=== PATIENT | female | born 1990 | race African-American/Black ===

== ENCOUNTER 2017-09-08 19:40 | Emergency (ER) | payer MEDICAID ==
[~2017-09-08] VITALS: Ht 167.6 cm; Wt 71.7 kg
[2017-09-08 21:46] LABS: CLARITY URINE CLOUDY (CLEAR); COLOR URINE YELLOW (YELLOW); KETONES URINE TRACE (NEGATIVE); LEUKOCYTE ESTERASE URINE NEGATIVE (NEGATIVE); NITRITE URINE NEGATIVE (NEGATIVE); OCCULT BLOOD URINE 3+ (NEGATIVE); PROTEIN URINE TRACE (NEGATIVE); SPECIFIC GRAVITY URINE 1.033 (1.005-1.030)
[2017-09-08 22:11] LABS: BASOPHILS % 0.8 % (0.0-2.0); EOSINOPHILS % 0.5 % (0.0-5.0); HEMATOCRIT. 28.6 % (36.0-48.0); LYMPHOCYTES % 24.8 % (20.0-50.0); MEAN CORPUSCULAR HEMOGLOBIN 23.8 pg (28.0-32.0); MEAN CORPUSCULAR VOLUME 75.4 fL (81.0-99.0); MEAN PLATELET VOLUME 7.6 fl (7.4-10.4); MONOCYTES % 5.9 % (2.0-8.0); PLATELET 525 x1000/uL (130-400); RED BLOOD CELL COUNT 3.79 mill/uL (4.2-5.4); RED CELL DISTRIBUTION WIDTH 18.1 % (11.6-14.6)
[2017-09-08 22:15] LABS: CHLORIDE 105 mEq/L (98-107)
[2017-09-08 22:27] LABS: B-HCG QUANTITATIVE < 1 mIU/mL (<3)
[2017-09-08] MEDS ORDERED: KETOROLAC 60MG/2ML VIAL IM ONE (22:45)
[2017-09-08 23:04] VITALS: BP 129/86
== END 2017-09-09 00:22 | disposition left against medical advice (07) ==
LOC: ER 21:02
DX: N93.8 Other specified abnormal uterine and vaginal bleeding (principal)
CPT/HCPCS: 36415; 80053; 81003; 81025; 84702; 85025; 86850; 86900; 86901; 96372; 99285; J1885; Z7610